=== PATIENT | female | born 1995 | race Caucasian/White ===

== ENCOUNTER 2019-03-31 02:30 | Emergency (ER) | payer OTHER ==
[~2019-03-31] VITALS: Ht 167.6 cm; Wt 77.3 kg
[2019-03-31 02:39] VITALS: TEMP 98
[2019-03-31 04:30] VITALS: BP 127/80; PULSE 86
== END 2019-03-31 04:30 | disposition home or self-care (01) ==
LOC: COL.ER 02:30
DX: S09.90XA Unspecified injury of head, initial encounter (principal); V48.5XXA Car driver injured in noncollision transport accident in traffic accident, initial encounter